=== PATIENT | female | born 1990 | race Two or more races ===

== ENCOUNTER 2018-10-18 20:12 | Inpatient (IN) | payer BC, OTHER ==
[~2018-10-18] VITALS: Ht 170.2 cm; Wt 110.3 kg
[2018-10-18 20:35] LABS: Urine Bacteria FEW /hpf (None Seen); Urine Blood 2+ /uL (Negative); Urine Hyaline Cast FEW /lpf (0 - 2); Urine Mucus FEW (None Seen); Urine Specific Gravity 1.018 (1.001-1.035); Urine WBC 3 /hpf (0 - 5)
[2018-10-18 20:50] LABS: Basophils # (auto) 0.1 uL; Basophils % (auto) 0.6 % (0.0-2.0); Eosinophils # (auto) 0 uL; Eosinophils % (auto) 0.4 % (0.0-7.0); Hematocrit 47.1 % (36.0-46.0); Hemoglobin 16.3 g/dL (12.2-16.2); Lymphocytes # (auto) 3.6 uL; Lymphocytes % (auto) 27.3 % (10.0-50.0); Mean Corpuscular Hemoglobin 32.8 pg (28.0-32.0); Mean Corpuscular Hgb Conc. 34.7 g/dL (32.0-36.0); Mean Corpuscular Volume 94.5 fL (80.0-100.0); Monocytes # (auto) 0.5 uL; Neutrophils % (auto) 67.7 % (37.0-80.0); Nucleated Red Blood Cells % 0.1 %; Platelet Count (auto) 419 10^3/uL (140-450); Red Blood Cells 4.98 10^6/uL (4.0-5.20); Red Cell Distribution Width 12.8 % (11.8-14.3); White Blood Cell 13.3 10^3/uL (4.4-10.8)
[2018-10-18 20:51] LABS: Amphetamine Screen, Urine NEGATIVE (NEGATIVE); Barbiturate Scree,Urine NEGATIVE (NEGATIVE); Benzodiazephine Screen, Urine NEGATIVE (NEGATIVE); Cannabinoid Screen, Urine NEGATIVE (NEGATIVE); Cocaine Screen, Urine NEGATIVE (NEGATIVE); Opiate Scree,Urine NEGATIVE (NEGATIVE); Phencyclidine Screen, Urine NEGATIVE (NEGATIVE)
[2018-10-18 21:06] LABS: Alanine Aminotransferase 35 U/L (13-56); Albumin 4.3 g/dL (3.4-5.0); Anion Gap 10 (5-15); Blood Alcohol < 3.0 mg/dL (0-5); Blood Urea Nitrogen 11 mg/dL (7-18); Calcium 9.2 mg/dL (8.5-10.1); Carbon Dioxide 26 mmol/L (21-32); Chloride 102 mmol/L (98-107); Glucose 109 mg/dL (74-106); Magnesium 2.2 mg/dL (1.6-2.6); Potassium 3.4 mmol/L (3.5-5.1); Sodium 138 mmol/L (136-145)
[2018-10-18 21:09] LABS: Alkaline Phosphatase 93 U/L (45-117); Aspartate Aminotransferase 13 U/L (15-37); Bilirubin, Total 1.1 mg/dL (0.2-1.0); GFR African American 84 mL/min; GFR Non-African American 69 mL/min; Total Protein 7.9 g/dL (6.4-8.2)
[2018-10-19] MEDS ORDERED: SODIUM CHLORIDE 0.9% 1,000 ML IV ONE (03:45)
[2018-10-19] MEDS ORDERED: ONDANSETRON HCL 4 MG/2 ML VIAL IV ONE (03:45)
[2018-10-19] MEDS ORDERED: POTASSIUM CHL 10 Meq TABLET PO ONE (03:45)
[2018-10-19] MEDS ORDERED: cefTRIAXone 1GM/50ML D5W 50 ML IV ONE (03:45)
[2018-10-19] MEDS ORDERED: IOHEXOL 350 MG/ML 100ML IJ ONE (04:03)
[2018-10-19 04:47] LABS: INR 0.99 (0.9-1.15); Partial Thromboplastin Time 26.8 sec (23.64-32.05); Prothrombin Time 10.7 sec (9.06-12.60)
[2018-10-19] MEDS ORDERED: SODIUM CHLORIDE 0.9% 1,000 ML IV SCH (06:17)
[2018-10-19] MEDS ORDERED: ONDANSETRON HCL 4 MG/2 ML VIAL IV PRN (06:30)
[2018-10-19 08:06] LABS: Hematocrit 41.5 % (36.0-46.0); Hemoglobin 14.8 g/dL (12.2-16.2)
[2018-10-19] MEDS ORDERED: cefTRIAXone 1GM/50ML D5W 50 ML IV SCH (09:00)
--- NOTE | 2018-10-19 09:45 | NUR ---
Opening Note Patient arrived from ER, received report at 0930. Patient is alert and oriented x4, ambulatory, no s/s of distress. Bed is in low, locked, position, call light within reach. POC discussed with patient. will continue to monitor Q1h and PRN.
[2018-10-19] MEDS ORDERED: FAMOTIDINE INJECTION 40 MG in SODIUM CHL 0.9% 100 ML IV SCH (10:00)
--- NOTE | 2018-10-19 10:48 | NUR ---
Dr. Makayla ann. Addendum: 10/19/18 at 1425 by RADHA WYMAN RN RN Wrong patient.
[2018-10-19 11:14] VITALS: BP 151/91
[2018-10-19] MEDS ORDERED: PANTOPRAZOLE 40 MG/10 ML VIAL INJ IV ONE (11:15)
[2018-10-19] MEDS ORDERED: ESOMEPRAZOLE 40 MG/5ml VIAL INJ IV ONE (11:15)
[2018-10-19] MEDS ORDERED: THIAMINE 100mg/ml INJ (200mg/2ml VIAL) IV ONE (11:15)
[2018-10-19] MEDS ORDERED: METOCLOPRAMIDE HCL 5MG/ml INJ 2ml VIAL IV ONE (11:15)
[2018-10-19] MEDS ORDERED: LOSA25TA40 PO (11:34)
--- NOTE | 2018-10-19 11:45 | NUR ---
Dr. Colunga with patient discussing poc
--- NOTE | 2018-10-19 12:15 | NUR ---
dr. justice with patient discussing poc
--- NOTE | 2018-10-19 12:50 | NUR ---
Patient signed AMA to go smoke and will return.
--- NOTE | 2018-10-19 13:55 | NUR ---
Patient sent for EGD procedure.
[2018-10-19] MEDS: MIDAZOLAM HCL 5 MG/ML-1ML VIAL ONE ×2 (14:38→14:42)
[2018-10-19] MEDS: fentaNYL CITRATE 100 MCG/2 ML VL ONE ×2 (14:38→14:42)
[2018-10-19] MEDS ORDERED: LIDOCAINE VISCOUS 2% 15ML UD ONE (14:41)
[2018-10-19] MEDS ORDERED: FLUMAZENIL 0.1 MG/ML INJ 10ML MDV IV ONE (14:41)
[2018-10-19] MEDS ORDERED: diphenhdrAMINE HCL 50 MG/1 ML VL ONE (14:42)
--- NOTE | 2018-10-19 15:04 | NUR ---
Patient returned from Procedure. Vital signs stable BP 144/95, HR 86; RR18; O2 95 on room air. Patient is experiencing some throat discomfort. Will page Dr. Colunga and notify regarding procedure results and patient status.
[2018-10-19 15:16] VITALS: BP 144/95
--- NOTE | 2018-10-19 15:16 | NUR ---
Paged Dr. Colunga.
--- NOTE | 2018-10-19 15:40 | NUR ---
Patient tolerating ice chips and water well. Throat pain has resolved, she is swallowing well.
--- NOTE | 2018-10-19 16:10 | NUR ---
Dr. Perrin to discharge patient, and received telephone orders, verified and read back regarding prescription and discharge home.
--- NOTE | 2018-10-19 18:26 | NUR ---
Discharge instructions given as ordered. Encourage to follow up with PMD as instructed. All questions and concerns addressed. Patient verbalized understanding. Medication reconciliation form completed and copy given to patient. IV removed with catheter intact, pressure dressing applied. Patient ambulated to vehicle with all personal belongings, accompanied by staff. No distress noted at time of departure.
[2018-10-19] MEDS ORDERED: PANTOPRAZOLE 40 MG TAB PO SCH (22:00)
[2018-10-20] MEDS ORDERED: THIAMINE 100mg/ml INJ (200mg/2ml VIAL) IV SCH (10:00)
[2018-10-20] MEDS ORDERED: ESOMEPRAZOLE 40 MG/5ml VIAL INJ IV SCH (10:00)
== END 2018-10-19 18:26 | disposition home or self-care (01) | DRG 378 ==
LOC: ER 20:12 → OVERFLOW 10-19 06:17 → CENTRAL 10-19 10:24
PROVIDERS: ADMIT Nurse Practitioner; ATTEND Nurse Practitioner
PROC: 0DB68ZX Excision of Stomach, Via Natural or Artificial Opening Endoscopic, Diagnostic (ICD-10-PCS; principal; 2018-10-19 14:36)
DX: K29.71 Gastritis, unspecified, with bleeding (principal); N39.0 Urinary tract infection, site not specified; Z68.38 Body mass index [BMI] 38.0-38.9, adult; K92.0 Hematemesis; E66.01 Morbid (severe) obesity due to excess calories; E87.6 Hypokalemia; I10 Essential (primary) hypertension; J45.909 Unspecified asthma, uncomplicated; K20.9 Esophagitis, unspecified; K57.30 Diverticulosis of large intestine without perforation or abscess without bleeding; K76.0 Fatty (change of) liver, not elsewhere classified; M51.9 Unspecified thoracic, thoracolumbar and lumbosacral intervertebral disc disorder; F17.200 Nicotine dependence, unspecified, uncomplicated; F10.10 Alcohol abuse, uncomplicated; Y90.9 Presence of alcohol in blood, level not specified
CPT/HCPCS: 36415; 43239; 71260; 74177; 80053; 80307; 80320; 81001; 83690; 83735; 84702; 85014; 85018; 85025; 85610; 85730; 86850; 86900; 86901; 87040; 87086; 94761; 96365; 96366; 96375; G0378; J0696; J2250; J2405; J3490